=== PATIENT | female | born 1975 | race Caucasian/White ===

== ENCOUNTER 2023-09-08 15:53 | Day surgery (SDC) | payer OTHER ==
[2023-09-08] MEDS ORDERED: FERRIC CARBOXYMALTOSE 750 MG in SODIUM CHLORIDE 250 ML IVPB ONE (17:15)
[2023-09-08 18:19] VITALS: BP 100/56; PULSE 66; RESP 16; TEMP 98.8
== END 2023-09-08 19:18 | disposition home or self-care (01) ==
LOC: FINFUSION 15:53 → FM/S 15:54 → FINFUSION 19:18
PROC: 3E033GC Introduction of Other Therapeutic Substance into Peripheral Vein, Percutaneous Approach (ICD-10-PCS; principal; 2023-09-08)
DX: D50.9 Iron deficiency anemia, unspecified (principal)
CPT/HCPCS: 96365; J1439

== ENCOUNTER 2023-09-15 15:54 | Day surgery (SDC) | payer OTHER ==
[2023-09-15] MEDS ORDERED: REFRIGERATED ANITBIOTICS ONE (16:28)
[2023-09-15] MEDS ORDERED: FERRIC CARBOXYMALTOSE 750 MG in SODIUM CHLORIDE 250 ML IVPB ONE (16:30)
[2023-09-15 17:04] VITALS: BP 99/63; RESP 18; TEMP 97.9
[2023-09-15 17:46] VITALS: PULSE 62
== END 2023-09-15 17:48 | disposition home or self-care (01) ==
LOC: FINFUSION 15:54 → FM/S 15:56 → FINFUSION 17:48
PROC: 3E033GC Introduction of Other Therapeutic Substance into Peripheral Vein, Percutaneous Approach (ICD-10-PCS; principal; 2023-09-15)
DX: D50.9 Iron deficiency anemia, unspecified (principal)
CPT/HCPCS: 81025; 96365; J1439